=== PATIENT | female | born 1980 | race Hispanic/Latino ===

== ENCOUNTER 2017-01-21 01:24 | Inpatient (IN) | payer OTHER ==
[~2017-01-21] VITALS: Ht 152.4 cm; Wt 91.6 kg
[~2017-01-21 01:24] MED LIST: AMOXICILLIN500 MG PO; DYAZIDE1 CAP PO; FLEXERIL OR; LORTAB 5 OR; METHOCARBAM500 MG PO; NAPROSYN500 MG PO; PERCOCET 10/31 COMBO PO; PERCOCET 5/321 COMBO PO; PERCOCET 5/325M1 TAB OR; TIZANIDINE4 MG PO; ZOFRAN ODT4 MG PO; [UNRECOGNIZED DRUG - REMARK]
[2017-01-21 02:05] LABS: HEMATOCRIT 40.4 % (37.0-47.0); HEMOGLOBIN 13.2 g/dl (12.0-16.0); IMMATURE GRANULOCYTES 0.3 % (0.0-1.0); MEAN CELL VOLUME 89.8 fL CALC (80.0-100.0); MEAN CORPUSCULAR HGB 29.3 pG CALC (26.0-32.0); MEAN CORPUSCULAR HGB CONC 32.7 g/L CALC (32.0-36.0); NEUT# 8.95 thou/uL (2.00-7.15); RED BLOOD COUNT 4.5 mill/uL (4.20-5.60); RED CELL DISTRI WIDTH 12.1 % (11.5-15.5)
[2017-01-21 02:07] LABS: URINE BILIRUBIN - DIPSTICK NEGATIVE (NEGATIVE); URINE BLOOD DIPSTICK SMALL (NEGATIVE); URINE CLARITY CLEAR; URINE COLOR YELLOW; URINE GLUCOSE - DIPSTICK NEGATIVE (NEGATIVE); URINE KETONE NEGATIVE (NEGATIVE); URINE LEUK ESTERASE NEGATIVE (NEGATIVE); URINE NITRITE - DIPSTICK NEGATIVE (Negative); URINE PH 5.5 (4.5-8.0); URINE PROTEIN - DIPSTICK NEGATIVE (NEG-TRACE); URINE SPECIFIC GRAVITY <=1.005; URINE UROBILINOGEN - DIPSTICK 0.2 E.U./dL (0.2)
[2017-01-21 02:12] LABS: BARBITURATES NEGATIVE (NEGATIVE); COCAINE NEGATIVE (NEGATIVE); METHADONE NEGATIVE (NEGATIVE); OXCYCODONE POSITIVE (NEGATIVE); TETRAHYDROCANNABIONOL NEGATIVE (NEGATIVE); TRICYLIC ANTIDEPRESSANTS NEGATIVE (NEGATIVE)
[2017-01-21 02:18] LABS: ALBUMIN 4.7 g/dL (3.2-5.0); ALKALINE PHOSPHATASE 188 u/l (38-126); AMYLASE 69 u/l (30-110); ANION GAP 21 (6-22 (CALC)); BILIRUBIN, TOTAL 0.5 mg/dL (0.0-1.4); BUN 11 mg/dL (7-17); BUN/CREATININE RATIO 15 (12-20 (CALC)); CALCIUM 9.8 mg/dL (8.4-10.2); CARBON DIOXIDE 23 mmol/l (22-30); CHLORIDE 104 mmol/l (95-108); CREATININE 0.7 mg/dL (0.5-1.0); ETHYL ALCOHOL 0 mg/dl (0-30); GFR > 60 ML/MIN (>=60 (CALC)); GFR FOR AFR.AMER. > 60 ML/MIN (>=60 (CALC)); GLUCOSE 96 mg/dL (65-105); LIPASE 220 u/l (23-300); POTASSIUM 3.9 mmol/l (3.5-5.1); SGOT/AST 31 u/l (14-36); SGPT/ALT 50 u/l (9-52); SODIUM 144 mmol/l (137-146); TOTAL PROTEIN 8.5 g/dL (6.3-8.2)
[2017-01-21 02:20] LABS: URINE RBC 0-2 RBC/hpf (0-5); URINE SQUAMOUS EPITHELIAL CELL FEW EPI/hpf (0-FEW); URINE WBC 0-2 WBC/hpf (0-5)
[2017-01-21 02:29] LABS: MYOGLOBIN 13 ng/mL (0 - 62)
[2017-01-21 04:37] VITALS: BP 150/95
[2017-01-21 07:37] VITALS: BP 124/68
[2017-01-21 14:00] VITALS: BP 135/86
[2017-01-21] MEDS ORDERED: AUGMENTIN875TAB PO (14:45)
[2017-01-21] MEDS ORDERED: METRONIDAZOL500 MG PO (14:45)
[2017-01-21] MEDS ORDERED: FLORASTOR250 M1 PO (14:45)
== END 2017-01-21 18:00 | disposition home or self-care (01) | DRG 862 ==
LOC: ENPENDDIS → ED 01:24 → ED-I 03:33 → ED 03:37 → MS2 03:38 → ED 03:38 → MS2 18:00
PROVIDERS: Emergency Medicine; ADMIT Internal Medicine; ATTEND Internal Medicine
DX: T81.4XXA Infection following a procedure, initial encounter (principal); A41.9 Sepsis, unspecified organism; E87.2 Acidosis; R56.9 Unspecified convulsions; G89.29 Other chronic pain; M54.9 Dorsalgia, unspecified; Y83.6 Removal of other organ (partial) (total) as the cause of abnormal reaction of the patient, or of later complication, without mention of misadventure at the time of the procedure
CPT/HCPCS: G0378; J1650; J2060

== ENCOUNTER 2017-09-06 08:40 | Emergency (ER) | payer OTHER ==
[~2017-09-06] VITALS: Ht 152.4 cm; Wt 90.0 kg
[~2017-09-06 08:40] MED LIST changes: +AUGMENTIN875TAB PO; +FLORASTOR250 M1 PO; +METRONIDAZOL500 MG PO
[2017-09-06 09:28] VITALS: BP 112/68
== END 2017-09-06 09:39 | disposition home or self-care (01) | DRG 563 ==
LOC: ED 08:40
DX: S63.502A Unspecified sprain of left wrist, initial encounter (principal); X50.1XXA Overexertion from prolonged static or awkward postures, initial encounter; Y93.89 Activity, other specified; Y92.003 Bedroom of unspecified non-institutional (private) residence as the place of occurrence of the external cause

== ENCOUNTER 2018-06-07 13:26 | Emergency (ER) | payer OTHER ==
[~2018-06-07] VITALS: Ht 152.4 cm; Wt 87.2 kg
[2018-06-07] MEDS ORDERED: FENTANYL50 MCG/HR TD (13:33)
[2018-06-07 14:07] LABS: HEMATOCRIT 39.6 % (37.0-47.0); HEMOGLOBIN 13.3 g/dl (12.0-16.0); IMMATURE GRANULOCYTES 0.2 % (0.0-5.0); MEAN CELL VOLUME 89.2 fL CALC (80.0-100.0); MEAN CORPUSCULAR HGB CONC 33.6 g/L CALC (32.0-36.0); NEUT# 3.41 thou/uL (2.00-7.15); RED BLOOD COUNT 4.44 mill/uL (4.20-5.60); RED CELL DISTRI WIDTH 11.9 % (11.5-15.5)
[2018-06-07 14:09] LABS: URINE BILIRUBIN - DIPSTICK NEGATIVE (NEGATIVE); URINE BLOOD DIPSTICK NEGATIVE (NEGATIVE); URINE COLOR YELLOW; URINE GLUCOSE - DIPSTICK NEGATIVE (NEGATIVE); URINE KETONE TRACE mg/dL (NEGATIVE); URINE LEUK ESTERASE NEGATIVE (NEGATIVE); URINE NITRITE - DIPSTICK NEGATIVE (Negative); URINE PROTEIN - DIPSTICK NEGATIVE (NEG-TRACE); URINE SPECIFIC GRAVITY >=1.030
[2018-06-07 14:19] LABS: URINE CLARITY CLEAR
[2018-06-07 14:22] LABS: ALBUMIN 4.6 g/dL (3.2-5.0); ALKALINE PHOSPHATASE 155 u/l (38-126); ANION GAP 16 (6-22 (CALC)); BILIRUBIN, TOTAL 0.7 mg/dL (0.0-1.4); BUN 7 mg/dL (7-17); BUN/CREATININE RATIO 12 (12-20 (CALC)); CARBON DIOXIDE 26 mmol/l (22-30); CHLORIDE 104 mmol/l (95-108); CREATININE 0.6 mg/dL (0.5-1.0); GFR > 60 ML/MIN (>=60 (CALC)); GFR FOR AFR.AMER. > 60 ML/MIN (>=60 (CALC)); POTASSIUM 3.7 mmol/l (3.5-5.1); SODIUM 143 mmol/l (137-146); TOTAL PROTEIN 8.8 g/dL (6.3-8.2)
[2018-06-07 14:23] LABS: SGOT/AST 58 u/l (14-36)
[2018-06-07 14:32] LABS: MYOGLOBIN 21 ng/mL (0 - 62)
[2018-06-07 14:51] LABS: TSH, 3RD GENERATION 0.54 uIU/mL (0.47 - 4.68)
[2018-06-07 15:31] VITALS: BP 118/71
== END 2018-06-07 15:36 | disposition home or self-care (01) | DRG 948 ==
LOC: ED 13:26
PROVIDERS: Family Medicine
DX: R53.1 Weakness (principal)

== ENCOUNTER 2019-04-14 21:13 | Emergency (ER) | payer OTHER ==
[~2019-04-14] VITALS: Ht 152.4 cm; Wt 94.0 kg
[~2019-04-14 21:13] MED LIST changes: +FENTANYL50 MCG/HR TD
[2019-04-15 02:30] VITALS: BP 120/72
== END 2019-04-15 02:30 | disposition home or self-care (01) | DRG 866 ==
LOC: ED 21:13
DX: B34.9 Viral infection, unspecified (principal)

== ENCOUNTER 2019-08-21 | Emergency (ER) | payer OTHER ==
[2019-08-21] MEDS ORDERED: IMITREX5 MG/ACT (11:18)
[2019-08-21] MEDS ORDERED: FLEXERIL PO (13:30)
[2019-08-21] MEDS ORDERED: ZOFRAN4 MG/TAB PO (13:30)
[2019-08-21] MEDS ORDERED: FIORICET PO (13:30)
== END 2019-08-21 13:42 | disposition home or self-care (01) | DRG 103 ==
DX: G43.909 Migraine, unspecified, not intractable, without status migrainosus (principal); I10 Essential (primary) hypertension; F17.200 Nicotine dependence, unspecified, uncomplicated

== ENCOUNTER 2019-12-25 | Emergency (ER) | payer OTHER ==
[~2019-12-25] MED LIST changes: +FIORICET PO; +FLEXERIL PO; +IMITREX5 MG/ACT; +ZOFRAN4 MG/TAB PO
[2019-12-25 10:39] LABS: HEMOGLOBIN 13.4 g/dl (12.0-16.0); IMMATURE GRANULOCYTES 0.4 % (0.0-5.0); MEAN CELL VOLUME 88.7 fL CALC (80.0-100.0); MEAN CORPUSCULAR HGB 29.7 pG CALC (26.0-32.0); MEAN CORPUSCULAR HGB CONC 33.5 g/dL CAL (32.0-36.0); NEUT# 4.96 thou/uL (2.00-7.15); RED BLOOD COUNT 4.51 mill/uL (4.20-5.60); RED CELL DISTRI WIDTH 12.4 % (11.5-15.5)
[2019-12-25 10:51] LABS: ALBUMIN 4.7 g/dL (3.2-5.0); ALKALINE PHOSPHATASE 99 u/l (38-126); ANION GAP 17 (6-22 (CALC)); BUN 7 mg/dL (7-17); BUN/CREATININE RATIO 13 (12-20 (CALC)); CARBON DIOXIDE 25 mmol/l (22-30); CHLORIDE 104 mmol/l (95-108); CREATININE 0.6 mg/dL (0.5-1.0); GFR > 60 ML/MIN (>=60 (CALC)); GFR FOR AFR.AMER. > 60 ML/MIN (>=60 (CALC)); POTASSIUM 4.2 mmol/l (3.5-5.1); SGOT/AST 26 u/l (14-36); SODIUM 141 mmol/l (137-146); TOTAL PROTEIN 8.7 g/dL (6.3-8.2)
[2019-12-25 11:03] LABS: MYOGLOBIN 18 ng/mL (0 - 62)
[2019-12-25 11:04] LABS: BILIRUBIN, TOTAL 0.4 mg/dL (0.0-1.4)
[2019-12-25 11:17] LABS: ACT PARTIAL THROMBO TIME 28.4 SECONDS (20.0-32.5)
[2019-12-25 11:26] LABS: D-DIMER 0.82 mg/L (0.19-0.60)
--- NOTE | 2019-12-28 15:50 | NUR ---
COVID nasal swab results called to patient with confirmation of name and date of . Encouraged current recommendations for social distancing and frequent handwashing.
--- NOTE | 2019-12-31 10:48 | NUR ---
Notified patient of Covid results (Negative). Advised patient to follow up with PCP or return to ED with urgent needs, especially fever or SOB. Advised patient to continue practicing Covid prevention measures. Patient verbalized understanding.
== END 2019-12-25 14:31 | disposition home or self-care (01) | DRG 313 ==
PROVIDERS: Family Medicine
DX: R07.89 Other chest pain (principal); R50.9 Fever, unspecified; R06.02 Shortness of breath; M79.10 Myalgia, unspecified site; I10 Essential (primary) hypertension; F17.200 Nicotine dependence, unspecified, uncomplicated; Z20.828 Contact with and (suspected) exposure to other viral communicable diseases
CPT/HCPCS: Q9967

== ENCOUNTER 2020-05-23 20:49 | Emergency (ER) | payer OTHER | END 2020-05-23 21:25 | disposition left against medical advice (07) | DRG 951 | LOC: ED 20:49 → LWOBS 21:25 | DX: Z53.21 Procedure and treatment not carried out due to patient leaving prior to being seen by health care provider (principal) ==

== ENCOUNTER 2020-07-04 18:02 | Inpatient (IN) | payer OTHER ==
[~2020-07-04] VITALS: Ht 149.9 cm; Wt 90.9 kg
--- NOTE | 2020-07-04 18:04 | NUR ---
Pt to room # 15 via W/C for bedside triage
[2020-07-04] MEDS ORDERED: TRAMADOL HCL50 MG PO (18:59)
--- NOTE | 2020-07-04 19:00 | NUR ---
RESTING QUIETLY AWAITING LAB DRAW
[2020-07-04 19:40] LABS: HEMATOCRIT 38.5 % (37.0-47.0); HEMOGLOBIN 12.4 g/dl (12.0-16.0); IMMATURE GRANULOCYTES 0.2 % (0.0-5.0); MEAN CELL VOLUME 91.7 fL CALC (80.0-100.0); MEAN CORPUSCULAR HGB 29.5 pG CALC (26.0-32.0); MEAN CORPUSCULAR HGB CONC 32.2 g/dL CAL (32.0-36.0); NEUT# 3.27 thou/uL (2.00-7.15); RED BLOOD COUNT 4.2 mill/uL (4.20-5.60); RED CELL DISTRI WIDTH 12.3 % (11.5-15.5)
[2020-07-04 19:44] LABS: ALBUMIN 3.8 g/dL (3.2-5.0); ALKALINE PHOSPHATASE 128 u/l (38-126); ANION GAP 12 (6-22 (CALC)); BILIRUBIN, TOTAL 0.3 mg/dL (0.0-1.4); BUN 9 mg/dL (7-17); BUN/CREATININE RATIO 16 (12-20 (CALC)); CARBON DIOXIDE 24 mmol/l (22-30); CHLORIDE 106 mmol/l (95-108); CREATININE 0.6 mg/dL (0.5-1.0); GFR > 60 ML/MIN (>=60 (CALC)); GFR FOR AFR.AMER. > 60 ML/MIN (>=60 (CALC)); LIPASE 110 u/l (23-300); POTASSIUM 4.2 mmol/l (3.5-5.1); SODIUM 137 mmol/l (137-146); TOTAL PROTEIN 7.4 g/dL (6.3-8.2)
[2020-07-04 19:45] LABS: SGOT/AST 67 u/l (14-36)
[2020-07-04 19:49] LABS: D-DIMER 0.8 mg/L (0.19-0.60)
[2020-07-04 19:53] LABS: PROTHROMBIN TIME 9.9 SECONDS (9.0-12.5)
--- NOTE | 2020-07-04 20:00 | NUR ---
LABS PENDING RESTING QUIETLY.
--- NOTE | 2020-07-04 21:00 | NUR ---
AWAITING TEST RESULTS. VSS. NAD
[2020-07-04 21:57] LABS: URINE BILIRUBIN - DIPSTICK NEGATIVE (NEGATIVE); URINE BLOOD DIPSTICK NEGATIVE (NEGATIVE); URINE COLOR YELLOW; URINE GLUCOSE - DIPSTICK NEGATIVE (NEGATIVE); URINE KETONE TRACE mg/dL (NEGATIVE); URINE LEUK ESTERASE NEGATIVE (NEGATIVE); URINE NITRITE - DIPSTICK NEGATIVE (Negative); URINE PROTEIN - DIPSTICK NEGATIVE (NEG-TRACE); URINE SPECIFIC GRAVITY 1.025; URINE UROBILINOGEN - DIPSTICK 0.2 E.U./dL (0.2)
--- NOTE | 2020-07-04 22:00 | NUR ---
RESTING QUIETLY NO CHANGE IN EXAM.
--- NOTE | 2020-07-04 23:00 | NUR ---
AWAITING ROOM ASSIGNMENT FOR ADMISSION. MEDICATED FOR BACK PAIN. IV INFUSING WELL
--- NOTE | 2020-07-05 | NUR ---
AWAITING DISPO.C/O NAUSEA.
--- NOTE | 2020-07-05 01:15 | NUR ---
RECEIVED FROM ER VIA STRETCHER INTO [id number] IS M/S TELE OVERFLOW PATIENT. PATIENT ABLE TO AMBULATE FROM THE STRETCHER TO THE BED WITH STABLE STANCE AND GAIT. USED BSC, VOIDED LARGE AMOUNT CLEAR YELLOW URINE. ASSISTED INTO BED AND PLACED ON AIDS NURSE SHOWING SR-ST. O2 ON AT 2 L NC. O2 SAT 98% BREATH SOUNDS DIMINISHED THROUGHOUT LUNG [place]. RESP NON-LABORED. SLIGHTLY DYSPNEIC WITH EXERTION. IV IN RAC, SITE BENIGN, NS INFUSING AT 150 ML/HR. DISCUSSED PLAN OF CARE. PATIENT REQUESTS SOMETHING TO EAT, PROVIDED WITH SANDWHICH AND A SODA. CALL MARTINEZ IN REACH.
--- NOTE | 2020-07-05 01:15 | NUR ---
Admission Note Report Given to: AYAN GALLEGO Transported by: Wheelchair X Stretcher Transported with: X Nurse Transporter X Patent IV X O2 X Industrial Furnace Fabricator Location: X ICU MS2
[2020-07-05 02:00] VITALS: BP 152/85
--- NOTE | 2020-07-05 04:00 | NUR ---
VSS. MAINTAINING O2 SATS GREATER THAN 95% ON O2 2 L NC.
--- NOTE | 2020-07-05 05:15 | NUR ---
TYLENOL 650 MG PO GIVEN FOR C/O BACK PAIN. PATIENT STATES SHE SUFFERS FROM CHRONIC BACK PAIN D/T DISC PROBLEMS.
[2020-07-05 06:34] LABS: HEMATOCRIT 40.9 % (37.0-47.0); HEMOGLOBIN 13.1 g/dl (12.0-16.0); IMMATURE GRANULOCYTES 0.4 % (0.0-5.0); MEAN CELL VOLUME 90.5 fL CALC (80.0-100.0); NEUT# 4.26 thou/uL (2.00-7.15); RED BLOOD COUNT 4.52 mill/uL (4.20-5.60); RED CELL DISTRI WIDTH 12.4 % (11.5-15.5)
[2020-07-05 06:59] LABS: ALBUMIN 3.9 g/dL (3.2-5.0); ALKALINE PHOSPHATASE 148 u/l (38-126); ANION GAP 14 (6-22 (CALC)); BILIRUBIN, TOTAL 0.3 mg/dL (0.0-1.4); BUN 6 mg/dL (7-17); BUN/CREATININE RATIO 12 (12-20 (CALC)); CARBON DIOXIDE 22 mmol/l (22-30); CHLORIDE 107 mmol/l (95-108); CREATININE 0.5 mg/dL (0.5-1.0); GFR > 60 ML/MIN (>=60 (CALC)); GFR FOR AFR.AMER. > 60 ML/MIN (>=60 (CALC)); POTASSIUM 4.4 mmol/l (3.5-5.1); SGOT/AST 63 u/l (14-36); SODIUM 138 mmol/l (137-146); TOTAL PROTEIN 7.2 g/dL (6.3-8.2)
--- NOTE | 2020-07-05 07:00 | NUR ---
REPORT RECEIVED FROM NIGHT NURSE. PT RESTING IN BED, NO S/S OF DISTRESS AT THIS TIME. SAFETY PRECAUTIONS IN PLACE. WILL CONTINUE TO MONITOR.
[2020-07-05 07:19] LABS: C-REACTIVE PROTEIN 16.1 mg/dL (0-0.9)
--- NOTE | 2020-07-05 08:05 | NUR ---
PT RESTING IN BED, ALERT AND ORIENTED. RESPIRATIONS ARE EVEN AND UNLABORED ON O2 @ 2L VIA NC. PEDAL PULSES ARE STRONG. PT REPORTS HAVING MILD PAIN IN HER BACK, PT TO BE MEDICATED PER EMAR ORDERS. SAFETY PRECAUTIONS IN PLACE. WILL CONTINUE TO MONITOR.
[2020-07-05 09:00] VITALS: BP 156/75
--- NOTE | 2020-07-05 09:52 | NUR ---
Pt consents to pneumococcal vaccination, however based on PMH, pt does not have indication for pneumococcal vaccination at this time.
[2020-07-05 11:43] VITALS: BP 156/85
--- NOTE | 2020-07-05 11:43 | NUR ---
PT ARRIVED TO [facility] ROOM 283 VIA WHEELCHAIR IN STABLE CONDITION. PT AMBULATED FOR WHEELCHAIR TO BED AND THEN TO BATHROOM WITH NO DIFFULTY. ASSESSMENT AND VITALS COMPLETED AT THIS. BP 156/85, HR 94, O2 98% ON 2L NC. RESPIRATIONS ARE EVEN AND UNLABORED WITH NO DISTRESS NEED. PT COMPLAINS OF BACK PAIN. WRITTER INFORMED PT THAT PAIN MEDICATION WAS NOT DUE AT THIS TIME. PT VERBALIZED UNDERSTANDING.PT STATES "THE ULTRAM DOESNT HELP." PT INFORMS WRITTER THAT SHE TAKES MUSCLE RELAXER AT HOME. MD TO BE NOTIFIED PT EDUCATED BLISTER PACKING MACHINE TENDER LIGHT SYSTEM AND ROOM. ALL SAFETY PRECAUTIONS ARE IN PLACE WITH CALL LIGHT IN REACH. WILL CONTINUE TO MONITOR
--- NOTE | 2020-07-05 14:43 | NUR ---
PT COMPLAINS OF 10/10 PAIN IN LOWER BACK. ULTRAM ADMINISTERED.
[2020-07-05 15:20] VITALS: BP 151/89
--- NOTE | 2020-07-05 15:40 | NUR ---
PT STATES ULTRAM WAS NO HELP WITH PAIN. PT STATES " MY SAID TO SIGN MYSLEF OUT AND WE CAN GO SOMEHWERE ELSE." WRITTER STATED THAT PT COULD BUT WOULD BE NOTFIED TO SEE IF ANY ADDITIONAL ORDERS CAN BE PLACED. PT VERBAIOLZED UNDERSTANDING.
--- NOTE | 2020-07-05 15:43 | NUR ---
RABAXIN ADMINISTERED TO ASSIST WITH BACK PAIN. PT STATES "ITS NOT GOING TO HELP." WRITTER INFORMED PT THAT MUSCLE RELAXER WAS TO BE ADMINISTERED TO ASSIT WITH PAIN ALONG WITH ULTRAM SHE DOES AT HOME. PT STATED "IM JUST GOING TO HAVE MY COM GET ME."
--- NOTE | 2020-07-05 15:48 | NUR ---
DALI, ANRP NOTIFIED. PT INFORMED THAT NEW ORDERS WILL BE PLACED BUT NOTHING IV . PT VERBAILZED UNDERTSNAIND. PT RESPIRATIONS REMAIN EVEN AND UNLABORED. ALL SAFETY PRECAUTIONS ARE IN PLACE WIHT CALL LIGHT IN REACH. WILL CONTINUE TO MONITOR
--- NOTE | 2020-07-05 16:17 | NUR ---
PT STATES " MY IS COMING TO PICK ME UP SO WE CAN GO SOMEWHERE ELSE BECAUSE MY BACK PAIN OR IS BAD. " WRITTER SUGGEST TRYING ORDERED PERCOCET. PT REFUSED. MD TO BE NOTIFIED.
--- NOTE | 2020-07-05 16:40 | NUR ---
PT EDUACTED ON AMA. PT VERBAILZED UNDERSTANDING STATING " IM GOING TO ANOTHER HOSPITAL SO I CAN GET SOMETHING FOR MY BACK PAIN."WRITTER EXPLAINED THAT PO PAIN MEDICATION WAS ABLE HERE. PT REFUSED. AMA FORM SIGNED. IV REMOVED WITH CATHATER STILL INTACT. TELE MONITORING REMOVED. ER NOTIFIED. PT REQUEST WHEELCHAIR FOR DISCHARGE
--- NOTE | 2020-07-05 16:42 | NUR ---
PT LEFT AMA VIA WHEELCHAIR ACCOMPAINED BY JAYDEN WEINER. ALL BELONGINGS LEFT WITH PT
== END 2020-07-05 16:42 | disposition left against medical advice (07) | DRG 177 ==
LOC: ED 18:02 → ED-I 23:30 → ED 07-05 00:54 → ICU 07-05 00:55 → MS2 07-05 11:56
PROVIDERS: ADMIT Internal Medicine; ATTEND Internal Medicine
DX: U07.1 COVID-19 (principal); J12.89 Other viral pneumonia; J96.01 Acute respiratory failure with hypoxia; R07.9 Chest pain, unspecified; R43.8 Other disturbances of smell and taste; I10 Essential (primary) hypertension; M54.9 Dorsalgia, unspecified; G89.29 Other chronic pain; G43.909 Migraine, unspecified, not intractable, without status migrainosus; F17.290 Nicotine dependence, other tobacco product, uncomplicated
CPT/HCPCS: J1650; Q9967

== ENCOUNTER 2021-08-24 08:52 | Emergency (ER) | payer OTHER ==
[~2021-08-24] VITALS: Ht 149.9 cm; Wt 75.0 kg
[~2021-08-24 08:52] MED LIST changes: +TRAMADOL HCL50 MG PO
[2021-08-24] MEDS ORDERED: TRULICITY0.75 MG/0. SC (09:07)
[2021-08-24] MEDS ORDERED: METFORMIN500 M2 PO (09:08)
[2021-08-24] MEDS ORDERED: CYCLOBENZAPRINE10 MG PO (11:19)
[2021-08-24] MEDS ORDERED: NAPROXEN500 MG PO (11:19)
[2021-08-24 11:40] VITALS: BP 119/63
== END 2021-08-24 11:40 | disposition home or self-care (01) | DRG 552 ==
LOC: ED 08:52
DX: S33.5XXA Sprain of ligaments of lumbar spine, initial encounter (principal); I10 Essential (primary) hypertension; F17.200 Nicotine dependence, unspecified, uncomplicated; X50.0XXA Overexertion from strenuous movement or load, initial encounter; Y93.E8 Activity, other personal hygiene; Y92.009 Unspecified place in unspecified non-institutional (private) residence as the place of occurrence of the external cause